=== PATIENT | male | born 1960 | race Caucasian/White ===

== ENCOUNTER → 2023-03-07 12:51 | Outpatient (CLI) | payer OTHER, MEDICAID, SELFPAY ==
--- NOTE | 2023-03-07 12:55 | DI.RAD.S_ITS ---
PROCEDURE: XR LUMBAR SPINE MIN 4V INDICATIONS: low back pain TECHNIQUE: 5 views of the lumbar spine were acquired, including bilateral oblique views. COMPARISON: None. FINDINGS: Bones: 5 [id number] vertebrae are present. There is normal bony alignment. No vertebral body compression fractures. No suspicious bony lesions. There is degenerative disc disease, moderate at L3-L4 and L4-L5, mild at other levels. Mild facet arthropathy at L3-L4, L4-L5 and L5-S1. Soft tissues: Overlying bowel gas pattern is normal. Severe atherosclerotic calcifications. Oblique images: No pars defects. IMPRESSION: 1. Degenerative disc and facet disease in lumbar spine as described. Dictated by: Rebeca Mae M.D. on 03/07/2023 at 14:07 Approved by: Rebeca Mae M.D. on 03/07/2023 at 14:08
== END ==
PROVIDERS: PCP Physician Assistant Medical; Referring Provider Anesthesiology; Visit Provider Anesthesiology
DX: M51.16 Intervertebral disc disorders with radiculopathy, lumbar region (principal); M47.26 Other spondylosis with radiculopathy, lumbar region; M47.27 Other spondylosis with radiculopathy, lumbosacral region; M54.50 Low back pain, unspecified; R20.2 Paresthesia of skin; R20.0 Anesthesia of skin
CPT/HCPCS: 72110; 99214